=== PATIENT | male | born 1975 | race African-American/Black ===

== ENCOUNTER → 2020-05-22 | Day surgery (SDC) | payer OTHER | END | disposition home or self-care (01) | LOC: FAS 08:03 | DX: K92.1 Melena (principal); K64.8 Other hemorrhoids; R10.13 Epigastric pain; R11.0 Nausea; G89.29 Other chronic pain; M25.579 Pain in unspecified ankle and joints of unspecified foot; F41.0 Panic disorder [episodic paroxysmal anxiety]; F40.10 Social phobia, unspecified | CPT/HCPCS: J7120 ==